=== PATIENT | male | born 1955 | race Caucasian/White ===

== ENCOUNTER → 2017-08-05 | Outpatient (CLI) | payer OTHER ==
[2017-08-05 14:43] LABS: THYROID PEROXIDASE ANTIBODY < 28.0 U/ML (<60.0)
== END ==
LOC: M LAB 10:50
PROVIDERS: ATTEND Nurse Practitioner Family
DX: E05.00 Thyrotoxicosis with diffuse goiter without thyrotoxic crisis or storm (principal)

== ENCOUNTER → 2017-08-12 | Outpatient (CLI) | payer OTHER ==
--- NOTE | 2017-08-14 08:18 | REP ---
Radionuclide thyroid scan and uptake: There are no comparison studies. The right and left lobes of the thyroid gland appear enlarged, the right lobe measuring 6.6 cm cranial caudad in the left lobe measuring 5.6 cm craniocaudad. There is a questionable focal zone of increased uptake in the lower pole of the right lobe on the ROMANIAN view only. This could be artifact. Otherwise, the uptake appears homogeneous. Thyroid uptake: The two our uptake is 4.78% (normal 6 - 12%). The 24 our uptake is 19.77% (normal is 25 - 35%). Impression: Question roll focal hot to zone inferiorly in the right lobe on one view only. The thyroid uptake is decreased from normal values. Consider thyroid ultrasound to evaluate for a thyroid nodule in the suspected focal hot zone in the right lobe lower pole. Signed by Joe Whitaker MD 08/14/2017 08:09 A
== END ==
LOC: M RAD 10:21
PROVIDERS: ATTEND Internal Medicine Endocrinology, Diabetes & Metabolism
DX: E05.00 Thyrotoxicosis with diffuse goiter without thyrotoxic crisis or storm (principal)
CPT/HCPCS: 78012; A9516

== ENCOUNTER → 2017-10-09 | Outpatient (REF) | payer OTHER ==
[2017-10-09 13:16] LABS: TOTAL 25(OH) VITAMIN D 55.8 NG/ML (30.0-100.0)
== END ==
LOC: M LAB REF 11:57
DX: E55.9 Vitamin D deficiency, unspecified (principal)

== ENCOUNTER → 2018-04-09 | Outpatient (REF) | payer OTHER ==
[2018-04-09 13:11] LABS: TOTAL T3 146.8 NG/DL (60.0-181.0)
[2018-04-09 13:16] LABS: THYROID STIMULATING HORMONE 0.006 uIU/ML (0.358-3.740); THYROXINE (T4) 13.6 UG/DL (4.5-12.0)
[2018-04-09 13:16] LABS: PSA SCREENING 0.67 NG/ML (< 4.0)
== END ==
LOC: M LAB REF 12:08
DX: R79.89 Other specified abnormal findings of blood chemistry (principal)

== ENCOUNTER → 2018-10-21 | Outpatient (REF) | payer OTHER ==
[2018-10-21 17:11] LABS: BASO # 0.1 10^3/uL (0.0-0.2); BASO % 0.8 % (0.0-1.0); EOS # 0.2 10^3/uL (0.0-0.50); HEMATOCRIT 44.9 % (42.0-52.0); HEMOGLOBIN 15.5 g/dl (13.5-17.5); LYMPH # 2.2 10^3/uL (1.5-4.5); MEAN CORPUSCULAR HEMOGLOBIN 31.9 pg (27.0-33.0); MEAN CORPUSCULAR HGB CONC 34.5 g/dl (32.0-36.5); MEAN CORPUSCULAR VOLUME 92.4 fl (80.0-96.0); MONO # 0.7 10^3/uL (0.0-0.8); MONO % 10.1 % (0.0-5.0); NEUTROPHILS # 3.5 10^3/uL (1.8-7.7); NEUTROPHILS % 52.8 % (36.0-66.0); PLATELET COUNT, AUTOMATED 197 10^3/uL (150-450); RED BLOOD COUNT 4.86 10^6/uL (4.30-6.10); WHITE BLOOD COUNT 6.6 10^3/uL (4.0-10.0)
[2018-10-21 17:20] LABS: ALBUMIN 4.2 GM/DL (3.2-5.2); ALT/SGPT 36 U/L (12-78); BILIRUBIN,TOTAL 0.5 MG/DL (0.2-1.0); BLOOD UREA NITROGEN 13 MG/DL (7-18); CALCIUM LEVEL 9.3 MG/DL (8.8-10.2); CARBON DIOXIDE LEVEL 32 MEQ/L (21-32); CHLORIDE LEVEL 104 MEQ/L (98-107); CHOLESTEROL LEVEL 109 MG/DL (<200); CHOLESTEROL RISK RATIO 2.224 (<5); CREATININE FOR GFR 1.04 MG/DL (0.70-1.30); FREE THYROXINE INDEX 5.3 % (1.4-3.8); GLOMERULAR FILTRATION RATE > 60.0 (>49); GLUCOSE, FASTING 107 MG/DL (70-100); HDL CHOLESTEROL 49 MG/DL (>40); LDL CHOLESTEROL 33 MG/DL (<100); NON-HDL-C 60 MG/DL; POTASSIUM SERUM 4.1 MEQ/L (3.5-5.1); SODIUM LEVEL 141 MEQ/L (136-145); T UPTAKE 35 % (33-40); THYROID STIMULATING HORMONE 0.007 uIU/ML (0.358-3.740); THYROXINE (T4) 15.1 UG/DL (4.5-12.0); TRIGLYCERIDES LEVEL 133 MG/DL (<150)
[2018-10-21 17:26] LABS: HEMOGLOBIN A1c 5.8 %
== END ==
LOC: M LAB REF 16:25
PROVIDERS: ATTEND Nurse Practitioner Adult Health
DX: Z13.9 Encounter for screening, unspecified (principal)

== ENCOUNTER → 2022-08-27 | Outpatient (REF) | payer OTHER ==
[2022-08-27 14:06] LABS: HEMOGLOBIN A1c 5.9 % (4.0-6.0)
[2022-08-27 14:10] LABS: ALBUMIN 3.8 G/DL (3.2-5.2); ALKALINE PHOSPHATASE 57 U/L (46-116); ALT/SGPT 52 U/L (7.0-40); AST/SGOT 29 U/L (<34); BILIRUBIN,TOTAL 0.5 MG/DL (0.3-1.2); BLOOD UREA NITROGEN 16 MG/DL (9-23); CALCIUM LEVEL 9.1 MG/DL (8.3-10.6); CARBON DIOXIDE LEVEL 25 MMOL/L (20-31); CHLORIDE LEVEL 105 MMOL/L (98-107); GLOMERULAR FILTRATION RATE > 60.0 (>49); GLUCOSE, FASTING 119 MG/DL (74-106); POTASSIUM SERUM 4.8 MMOL/L (3.5-5.1); SODIUM LEVEL 139 MMOL/L (136-145); TOTAL PROTEIN 6.5 G/DL (5.7-8.2)
== END ==
LOC: M LAB REF 12:33
PROVIDERS: ATTEND Nurse Practitioner Family
DX: E66.9 Obesity, unspecified (principal)

== ENCOUNTER → 2022-09-12 | Outpatient (REF) | payer OTHER | LOC: M LAB REF 12:52 | PROVIDERS: ATTEND Nurse Practitioner Family | DX: R39.9 Unspecified symptoms and signs involving the genitourinary system (principal) ==

== ENCOUNTER → 2022-09-26 | Outpatient (CLI) | payer OTHER ==
[2022-09-26 13:45] LABS: TOTAL T3 140.5 NG/DL (60.0-181.0)
[2022-09-26 13:46] LABS: THYROGLOBULIN ANTIBODY < 15.0 U/ML (<60.0); THYROID PEROXIDASE ANTIBODY < 28.0 U/ML (<60.0); THYROID STIMULATING HORMONE 0.013 uIU/ML (0.55-4.78)
[2022-09-26 13:47] LABS: FREE T4 1.22 NG/DL (0.89-1.76)
== END ==
LOC: M PLALAB 11:02
PROVIDERS: ATTEND Nurse Practitioner Family
DX: E05.00 Thyrotoxicosis with diffuse goiter without thyrotoxic crisis or storm (principal)

== ENCOUNTER → 2022-10-17 | Outpatient (REF) | payer OTHER ==
[2022-10-17 12:17] LABS: ALBUMIN 4.1 G/DL (3.2-5.2); ALKALINE PHOSPHATASE 57 U/L (46-116); ALT/SGPT 57 U/L (7.0-40); AST/SGOT 33 U/L (<34); BILIRUBIN,TOTAL 0.6 MG/DL (0.3-1.2); BLOOD UREA NITROGEN 13 MG/DL (9-23); CALCIUM LEVEL 9.4 MG/DL (8.3-10.6); CARBON DIOXIDE LEVEL 31 MMOL/L (20-31); CHLORIDE LEVEL 107 MMOL/L (98-107); CHOLESTEROL LEVEL 118 MG/DL (<200); CHOLESTEROL RISK RATIO 2.57 (<5); CREATININE FOR GFR 1.22 MG/DL (0.70-1.30); GLOMERULAR FILTRATION RATE > 60.0 (>49); GLUCOSE, FASTING 125 MG/DL (74-106); HDL CHOLESTEROL 45.9 MG/DL (>40); LDL CHOLESTEROL 58.3 MG/DL (<100); NON-HDL-C 72 MG/DL; POTASSIUM SERUM 4.7 MMOL/L (3.5-5.1); SODIUM LEVEL 141 MMOL/L (136-145); THYROID STIMULATING HORMONE 0.016 uIU/ML (0.55-4.78); TOTAL PROTEIN 6.4 G/DL (5.7-8.2); TRIGLYCERIDES LEVEL 69 MG/DL (<150)
== END ==
LOC: M LAB REF 11:16
PROVIDERS: ATTEND Nurse Practitioner Family
DX: Z13.228 Encounter for screening for other metabolic disorders (principal)

== ENCOUNTER → 2022-11-13 | Outpatient (CLI) | payer MEDICARE, OTHER | LOC: M RAD 13:00 | PROVIDERS: ATTEND Internal Medicine Endocrinology, Diabetes & Metabolism | DX: E05.00 Thyrotoxicosis with diffuse goiter without thyrotoxic crisis or storm (principal) | CPT/HCPCS: 78012; A9516 ==

== ENCOUNTER → 2023-10-22 | Outpatient (REF) | payer MEDICARE, OTHER ==
[2023-10-22 13:46] LABS: BASO # 0.1 10^3/uL (0.0-0.2); BASO % 0.9 % (0.0-1.0); EOS # 0.2 10^3/uL (0.0-0.5); EOS % 3.1 % (0.0-3.0); HEMOGLOBIN 15.6 g/dl (13.5-17.5); LYMPH # 1.6 10^3/uL (1.5-5.0); LYMPH % 23.9 % (24.0-44.0); MEAN CORPUSCULAR HEMOGLOBIN 32.9 pg (27.0-33.0); MEAN CORPUSCULAR HGB CONC 33.9 g/dl (32.0-36.5); MONO # 0.6 10^3/uL (0.0-0.8); MONO % 8.8 % (2.0-8.0); NEUTROPHILS # 4.3 10^3/uL (1.5-8.5); PLATELET COUNT, AUTOMATED 198 10^3/uL (150-450); RED BLOOD COUNT 4.74 10^6/uL (4.30-6.10); WHITE BLOOD COUNT 6.7 10^3/uL (4.0-10.0)
[2023-10-22 14:29] LABS: HEMOGLOBIN A1c 5.9 % (4.0-6.0)
[2023-10-22 14:33] LABS: ALBUMIN 4.5 G/DL (3.2-5.2); ALKALINE PHOSPHATASE 60 U/L (46-116); ALT/SGPT 58 U/L (7.0-40); AST/SGOT 24 U/L (<34); BILIRUBIN,TOTAL 0.8 MG/DL (0.3-1.2); BLOOD UREA NITROGEN 12 MG/DL (9-23); CALCIUM LEVEL 9.4 MG/DL (8.3-10.6); CARBON DIOXIDE LEVEL 30 MMOL/L (20-31); CHLORIDE LEVEL 104 MMOL/L (98-107); CHOLESTEROL LEVEL 125 MG/DL (<200); CHOLESTEROL RISK RATIO 3.11 (<5); CREATININE FOR GFR 0.99 MG/DL (0.70-1.30); GLOMERULAR FILTRATION RATE > 60.0 (>49); GLUCOSE, FASTING 124 MG/DL (74-106); HDL CHOLESTEROL 40.1 MG/DL (>40); LDL CHOLESTEROL 65.1 MG/DL (<100); NON-HDL-C 84.9 MG/DL; POTASSIUM SERUM 4.1 MMOL/L (3.5-5.1); SODIUM LEVEL 138 MMOL/L (136-145); THYROID STIMULATING HORMONE 0.066 uIU/ML (0.55-4.78); TOTAL 25(OH) VITAMIN D 45.7 NG/ML (20.0-100.0); TRIGLYCERIDES LEVEL 99 MG/DL (<150)
== END ==
LOC: M LAB REF 12:46
PROVIDERS: ATTEND Nurse Practitioner Family
DX: Z13.228 Encounter for screening for other metabolic disorders (principal); E07.9 Disorder of thyroid, unspecified; E78.00 Pure hypercholesterolemia, unspecified

== ENCOUNTER → 2023-11-08 | Outpatient (CLI) | payer MEDICARE, OTHER ==
[2023-11-08 16:38] LABS: FREE T4 1.1 NG/DL (0.89-1.76)
[2023-11-08 16:39] LABS: THYROID STIMULATING HORMONE 0.074 uIU/ML (0.55-4.78)
== END ==
LOC: M PLALAB 12:15
PROVIDERS: ATTEND Internal Medicine Endocrinology, Diabetes & Metabolism
DX: E05.00 Thyrotoxicosis with diffuse goiter without thyrotoxic crisis or storm (principal)

== ENCOUNTER → 2023-11-22 | Outpatient (CLI) | payer MEDICARE, OTHER ==
[2023-11-22 13:06] LABS: PSA SCREENING 0.4 NG/ML (< 4.00)
[2023-11-22 13:10] LABS: FOLLICLE STIMULATING HORMONE 10.1 mIU/ML (1.4-18.1); LUTEINIZING HORMONE 2.5 mIU/ML (1.5-9.3)
[2023-11-22 13:11] LABS: ESTRADIOL 19.6 PG/ML (<39.8)
== END ==
LOC: M PLALAB 09:13
PROVIDERS: ATTEND Physician Assistant
DX: R68.82 Decreased libido (principal); Z12.5 Encounter for screening for malignant neoplasm of prostate
CPT/HCPCS: 36415; 82670; 83001; 83002; 84403; G0103

== ENCOUNTER → 2023-12-23 | Outpatient (CLI) | payer MEDICARE, OTHER | LOC: M PLALAB 12-20 15:27 | PROVIDERS: ATTEND Physician Assistant | DX: E29.1 Testicular hypofunction (principal) ==

== ENCOUNTER → 2023-12-27 | Outpatient (CLI) | payer MEDICARE, OTHER | LOC: M RAD 12:26 | PROVIDERS: ATTEND Nurse Practitioner Family | DX: K43.9 Ventral hernia without obstruction or gangrene (principal) ==

== ENCOUNTER → 2024-03-13 | Outpatient (CLI) | payer MEDICARE ==
[2024-03-13 13:37] LABS: HEMATOCRIT 46.8 % (42.0-52.0); HEMOGLOBIN 15.7 g/dl (13.5-17.5); MEAN CORPUSCULAR HEMOGLOBIN 32.6 pg (27.0-33.0); MEAN CORPUSCULAR HGB CONC 33.5 g/dl (32.0-36.5); MEAN CORPUSCULAR VOLUME 97.1 fl (80.0-96.0); PLATELET COUNT, AUTOMATED 182 10^3/uL (150-450); RED BLOOD COUNT 4.82 10^6/uL (4.30-6.10); WHITE BLOOD COUNT 7.8 10^3/uL (4.0-10.0)
== END ==
LOC: M PLALAB 08:54
PROVIDERS: ATTEND Physician Assistant
DX: E29.1 Testicular hypofunction (principal)

== ENCOUNTER → 2024-04-06 | Outpatient (CLI) | payer MEDICARE | LOC: M RAD 09:17 | PROVIDERS: ATTEND Nurse Practitioner Family | DX: Z87.891 Personal history of nicotine dependence (principal) ==

== ENCOUNTER → 2024-06-09 | Outpatient (CLI) | payer OTHER | LOC: M PLALAB 08:05 | PROVIDERS: ATTEND Physician Assistant | DX: E29.1 Testicular hypofunction (principal) ==

== ENCOUNTER → 2024-06-24 | Outpatient (CLI) | payer OTHER | LOC: M RAD 10:39 | PROVIDERS: ATTEND Nurse Practitioner Family | DX: E04.1 Nontoxic single thyroid nodule (principal) ==

== ENCOUNTER 2024-08-22 19:14 | Inpatient (IN) | payer OTHER ==
[~2024-08-22] VITALS: Ht 182.9 cm; Wt 75.7 kg
[2024-08-22] MEDS ORDERED: ISOVUE-370 76% 100ML VIAL As Ordered ONE (19:18)
[2024-08-22 19:41] LABS: BASO % 0.4 % (0.0-1.0); EOS # 0.1 10^3/uL (0.0-0.5); EOS % 1.4 % (0.0-3.0); HEMATOCRIT 44.5 % (42.0-52.0); HEMOGLOBIN 15.1 g/dl (13.5-17.5); LYMPH # 1.2 10^3/uL (1.5-5.0); LYMPH % 12.8 % (24.0-44.0); MEAN CORPUSCULAR HEMOGLOBIN 33.1 pg (27.0-33.0); MEAN CORPUSCULAR HGB CONC 33.9 g/dl (32.0-36.5); MEAN CORPUSCULAR VOLUME 97.6 fl (80.0-96.0); MONO # 0.7 10^3/uL (0.0-0.8); MONO % 7.8 % (2.0-8.0); NEUTROPHILS # 7.1 10^3/uL (1.5-8.5); NEUTROPHILS % 77.3 % (36.0-66.0); PLATELET COUNT, AUTOMATED 184 10^3/uL (150-450); RED BLOOD COUNT 4.56 10^6/uL (4.30-6.10); WHITE BLOOD COUNT 9.2 10^3/uL (4.0-10.0)
[2024-08-22 20:13] LABS: INR 1.02; PROTHROMBIN TIME 13.7 SECONDS (12.5-14.5)
[2024-08-22 20:14] LABS: CALCIUM LEVEL 9.6 MG/DL (8.3-10.6); CREATININE FOR GFR 1.31 MG/DL (0.70-1.30); GLOMERULAR FILTRATION RATE 58.3 (>49); POTASSIUM SERUM 4.5 MMOL/L (3.5-5.1)
[2024-08-22] MEDS ORDERED: NS (Normal Saline) 0.9% 1,000 ML IV ONE (20:25)
[2024-08-22] MEDS: NS 500 ML IV SCH (20:26)
[2024-08-22] MEDS: ASPIRIN 300 MG SUPP PR ONE (20:42)
[2024-08-22] MEDS: NS (Normal Saline) 0.9% 1,000 ML IV SCH (23:29)
[2024-08-22] MEDS ORDERED: D 101000 PO (23:33)
[2024-08-22] MEDS ORDERED: CENT1TAB2 PO (23:33)
[2024-08-22] MEDS ORDERED: TEST75GE TOP (23:33)
[2024-08-22] MEDS ORDERED: HOME MED LIST COMPLETE! XX SCH (23:35)
[2024-08-23] VITALS (7 sets, daily range): BP systolic 165–190; BP diastolic 49–108; TEMP 97.7–100.6; O2SAT 95–99
[2024-08-23 00:59] LABS: AMPHETAMINES LEVEL URINE NEGATIVE (NEGATIVE); BARBITURATES URINE NEGATIVE (NEGATIVE); BENZODIAZEPINES URINE NEGATIVE (NEGATIVE); COCAINE METABOLITE URINE NEGATIVE (NEGATIVE); METHADONE URINE NEGATIVE (NEGATIVE); OPIATES URINE NEGATIVE (NEGATIVE); PHENCYCLIDINE URINE NEGATIVE (NEGATIVE)
[2024-08-23 01:01] LABS: CANNABINOIDS URINE POSITIVE (NEGATIVE)
[2024-08-23] MEDS: CLOPIDOGREL 300 MG TAB (PLAVIX) GT STA (01:55)
[2024-08-23] MEDS: LABETALOL 100MG/20ML VIAL IV SCH (01:57)
[2024-08-23] MEDS: ATORVASTATIN 20 MG TAB GT SCH (01:57)
[2024-08-23] MEDS: HEPARIN SOD (PORCINE) 5000UNITS/ML 1ML VIAL/SYRINGE SQ SCH (05:29)
[2024-08-23 06:05] LABS: HEMATOCRIT 46.1 % (42.0-52.0); HEMOGLOBIN 15.6 g/dl (13.5-17.5); MEAN CORPUSCULAR HEMOGLOBIN 32.8 pg (27.0-33.0); MEAN CORPUSCULAR HGB CONC 33.8 g/dl (32.0-36.5); MEAN CORPUSCULAR VOLUME 96.8 fl (80.0-96.0); PLATELET COUNT, AUTOMATED 182 10^3/uL (150-450); RED BLOOD COUNT 4.76 10^6/uL (4.30-6.10); WHITE BLOOD COUNT 9.5 10^3/uL (4.0-10.0)
[2024-08-23 06:34] LABS: ALBUMIN 3.9 G/DL (3.2-5.2); ALKALINE PHOSPHATASE 60 U/L (40-129); ALT/SGPT 58 U/L (7.0-40); AST/SGOT 25 U/L (<34); BILIRUBIN,TOTAL 0.8 MG/DL (0.3-1.2); BLOOD UREA NITROGEN 11 MG/DL (9-23); CALCIUM LEVEL 9.2 MG/DL (8.3-10.6); CARBON DIOXIDE LEVEL 27 MMOL/L (20-31); CHLORIDE LEVEL 107 MMOL/L (98-107); CREATININE FOR GFR 1.06 MG/DL (0.70-1.30); GLOMERULAR FILTRATION RATE > 60.0 (>49); GLUCOSE, FASTING 126 MG/DL (74-106); SODIUM LEVEL 143 MMOL/L (136-145); TOTAL PROTEIN 6.7 G/DL (5.7-8.2)
[2024-08-23] MEDS: PANTOPRAZOLE 40MG VIAL IV SCH (08:30)
[2024-08-23] MEDS: ASPIRIN 81MG CHEW TABLET GT SCH (08:30)
[2024-08-23] MEDS: CLOPIDOGREL 75 MG TAB GT SCH (08:30)
[2024-08-23] MEDS: CHLORASEPTIC SPRAY MT PRN (12:43)
[2024-08-23] MEDS: LORazepam 2 MG/ML 1ML VIAL IV PRN (17:02)
[2024-08-23] MEDS ORDERED: MAGIC MOUTHWASH 5ML ORAL SYRINGE SS PRN (21:30)
[2024-08-24] MEDS ORDERED: ACETAMINOPHEN 325 MG TAB PO PRN (01:25)
[2024-08-24 04:51] VITALS: BP 170/98; TEMP 100.2; O2SAT 97
[2024-08-24 07:57] LABS: HEMATOCRIT 44.3 % (42.0-52.0); HEMOGLOBIN 15.3 g/dl (13.5-17.5); MEAN CORPUSCULAR HEMOGLOBIN 32.9 pg (27.0-33.0); MEAN CORPUSCULAR HGB CONC 34.5 g/dl (32.0-36.5); MEAN CORPUSCULAR VOLUME 95.3 fl (80.0-96.0); PLATELET COUNT, AUTOMATED 175 10^3/uL (150-450); RED BLOOD COUNT 4.65 10^6/uL (4.30-6.10); WHITE BLOOD COUNT 9.4 10^3/uL (4.0-10.0)
[2024-08-24 08:06] VITALS: BP 144/77; TEMP 99; O2SAT 94
[2024-08-24 08:22] LABS: BLOOD UREA NITROGEN 10 MG/DL (9-23); CALCIUM LEVEL 9.2 MG/DL (8.3-10.6); CARBON DIOXIDE LEVEL 25 MMOL/L (20-31); CHLORIDE LEVEL 108 MMOL/L (98-107); GLOMERULAR FILTRATION RATE > 60.0 (>49); GLUCOSE, FASTING 118 MG/DL (74-106); POTASSIUM SERUM 4.2 MMOL/L (3.5-5.1); SODIUM LEVEL 141 MMOL/L (136-145)
[2024-08-24] MEDS ORDERED: HEPARIN SOD (PORCINE) 5000UNITS/ML 1ML VIAL/SYRINGE SQ SCH ×2 (09:00→21:00)
[2024-08-24 12:00] VITALS: BP 162/92
[2024-08-24 12:14] VITALS: BP 162/92; TEMP 98.9; O2SAT 96
[2024-08-24] MEDS ORDERED: CLOP75TA2 PO (13:39)
[2024-08-24] MEDS ORDERED: ASPI81CH8 PO (13:39)
[2024-08-24] MEDS ORDERED: ATOR1TAB21 PO (13:39)
== END 2024-08-24 16:07 | disposition home or self-care (01) | DRG 69 ==
LOC: EDBD 19:14 → M ED 19:14 → M ED INP 22:29 → M PCU 08-23 01:11
PROVIDERS: ADMIT Student in an Organized Health Care Education/Training Program; ATTEND Student in an Organized Health Care Education/Training Program
PROC: B246ZZZ Ultrasonography of Right and Left Heart (ICD-10-PCS; principal; 2024-08-24)
DX: G45.9 Transient cerebral ischemic attack, unspecified (principal); N17.9 Acute kidney failure, unspecified; R47.01 Aphasia; I10 Essential (primary) hypertension; E29.1 Testicular hypofunction; Z87.891 Personal history of nicotine dependence; Z79.899 Other long term (current) drug therapy

== ENCOUNTER → 2024-09-16 | Outpatient (CLI) | payer MEDICARE, OTHER ==
[~2024-09-16] MED LIST: ASPI81CH8 PO; ATOR1TAB21 PO; CENT1TAB2 PO; CLOP75TA2 PO; D 101000 PO; TEST75GE TOP
[2024-09-16 14:14] LABS: HEMATOCRIT 34.6 % (42.0-52.0); HEMOGLOBIN 11.6 g/dl (13.5-17.5); MEAN CORPUSCULAR HEMOGLOBIN 32.6 pg (27.0-33.0); MEAN CORPUSCULAR HGB CONC 33.5 g/dl (32.0-36.5); MEAN CORPUSCULAR VOLUME 97.2 fl (80.0-96.0); PLATELET COUNT, AUTOMATED 316 10^3/uL (150-450); RED BLOOD COUNT 3.56 10^6/uL (4.30-6.10); WHITE BLOOD COUNT 12.6 10^3/uL (4.0-10.0)
[2024-09-20 17:47] LABS: TESTOSTERONE FREE (DIRECT) 8.1 pg/mL (35.0-155.0)
== END ==
LOC: M PLALAB 11:13
PROVIDERS: ATTEND Physician Assistant
DX: E29.1 Testicular hypofunction (principal)

== ENCOUNTER → 2024-10-12 | Outpatient (CLI) | payer MEDICARE | LOC: M RAD 13:50 | PROVIDERS: ATTEND Nurse Practitioner Family | DX: E04.1 Nontoxic single thyroid nodule (principal) ==

== ENCOUNTER → 2024-10-29 | Outpatient (REF) | payer MEDICARE ==
[2024-10-30 13:20] LABS: BASO # 0.1 10^3/uL (0.0-0.2); BASO % 0.8 % (0.0-1.0); EOS # 0.2 10^3/uL (0.0-0.5); HEMATOCRIT 43.4 % (42.0-52.0); HEMOGLOBIN 14.6 g/dl (13.5-17.5); LYMPH # 1.6 10^3/uL (1.5-5.0); LYMPH % 24.1 % (24.0-44.0); MEAN CORPUSCULAR HGB CONC 33.6 g/dl (32.0-36.5); MEAN CORPUSCULAR VOLUME 98.2 fl (80.0-96.0); MONO # 0.7 10^3/uL (0.0-0.8); MONO % 10.3 % (2.0-8.0); NEUTROPHILS % 61.6 % (36.0-66.0); PLATELET COUNT, AUTOMATED 168 10^3/uL (150-450); RED BLOOD COUNT 4.42 10^6/uL (4.30-6.10); WHITE BLOOD COUNT 6.4 10^3/uL (4.0-10.0)
[2024-10-30 13:35] LABS: HEMOGLOBIN A1c 5.6 % (4.0-6.0)
[2024-10-30 13:48] LABS: CHOLESTEROL RISK RATIO 2.95 (<5); HDL CHOLESTEROL 30.8 MG/DL (>40); LDL CHOLESTEROL 39.6 MG/DL (<100); MAGNESIUM LEVEL 1.6 MG/DL (1.8-2.4); NON-HDL-C 60.2 MG/DL
[2024-10-30 13:53] LABS: THYROID STIMULATING HORMONE 0.128 uIU/ML (0.55-4.78)
== END ==
LOC: M LAB REF 12:11
PROVIDERS: ATTEND Nurse Practitioner Family
DX: E66.3 Overweight (principal); Z79.899 Other long term (current) drug therapy

== ENCOUNTER 2024-12-04 18:39 | Emergency (ER) | payer MEDICARE ==
[2024-12-04] MEDS: MIDAZOLAM INJ 2MG/2ML VIAL IV STA ×3 (19:26→23:05)
[2024-12-04 19:48] LABS: BASO # 0.1 10^3/uL (0.0-0.2); BASO % 0.3 % (0.0-1.0); EOS % 0.1 % (0.0-3.0); HEMATOCRIT 49.9 % (42.0-52.0); LYMPH # 1.1 10^3/uL (1.5-5.0); LYMPH % 4.7 % (24.0-44.0); MEAN CORPUSCULAR HEMOGLOBIN 32.2 pg (27.0-33.0); MEAN CORPUSCULAR HGB CONC 34.1 g/dl (32.0-36.5); MEAN CORPUSCULAR VOLUME 94.5 fl (80.0-96.0); MONO # 0.7 10^3/uL (0.0-0.8); MONO % 2.9 % (2.0-8.0); NEUTROPHILS # 21.4 10^3/uL (1.5-8.5); NEUTROPHILS % 91.1 % (36.0-66.0); PLATELET COUNT, AUTOMATED 218 10^3/uL (150-450); RED BLOOD COUNT 5.28 10^6/uL (4.30-6.10); WHITE BLOOD COUNT 23.4 10^3/uL (4.0-10.0)
[2024-12-04 20:08] LABS: CK-MB VALUE MASS 1.8 NG/ML (<3.6)
[2024-12-04 20:09] LABS: ETHYL ALCOHOL (ETHANOL) 0.008 % (0.000-0.010)
[2024-12-04 20:11] LABS: ALBUMIN 4.1 G/DL (3.2-5.2); ALKALINE PHOSPHATASE 59 U/L (40-129); ALT/SGPT 34 U/L (7.0-40); AST/SGOT 22 U/L (<34); BILIRUBIN,DIRECT 0.2 MG/DL (<0.4); BILIRUBIN,TOTAL 0.5 MG/DL (0.3-1.2); BLOOD UREA NITROGEN 13 MG/DL (9-23); CARBON DIOXIDE LEVEL 19 MMOL/L (20-31); CHLORIDE LEVEL 103 MMOL/L (98-107); CPK CREATINE PHOSPHOKINASE 118 U/L (46-171); GLOMERULAR FILTRATION RATE 58.6 (>49); GLUCOSE, FASTING 248 MG/DL (74-106); MB/CK RELATIVE INDEX 1.52 (< OR =4); POTASSIUM SERUM 3.9 MMOL/L (3.5-5.1); SALICYLATE LEVEL < 3.0 MG/DL (<30); SODIUM LEVEL 139 MMOL/L (136-145); TOTAL PROTEIN 7.3 G/DL (5.7-8.2)
[2024-12-04 20:13] LABS: THYROID STIMULATING HORMONE 0.328 uIU/ML (0.55-4.78)
[2024-12-04] MEDS ORDERED: CLOP75TA2 PO (20:36)
[2024-12-04] MEDS ORDERED: ASPI81CH33 PO (20:36)
[2024-12-04] MEDS ORDERED: METO1TAB87 PO (20:36)
[2024-12-04] MEDS ORDERED: ATOR1TAB19 PO (20:36)
[2024-12-04] MEDS: NS 0.9% IV ONE (20:39)
[2024-12-04] MEDS: [UNRECOGNIZED DRUG - OTHER] IV ONE (20:39)
[2024-12-04] MEDS ORDERED: HOME MED LIST COMPLETE! XX SCH (20:40)
[2024-12-04] MEDS: cefTRIAXone SOD 2 GM in DEXTROSE 5% (D5W) ADV/MINI-BAG 50 ML IV ONE (21:13)
[2024-12-04 21:57] LABS: KETONE, URINE AUTO RFX TRACE mg/dL (NEGATIVE); LEUKOCYTE ESTERASE UR AUTO RFX NEGATIVE (NEGATIVE); MUCUS, URINE RFX SMALL (NEGATIVE); NITRITE, URINE AUTO RFX NEGATIVE (NEGATIVE); RBC, URINE AUTO RFX 1 /HPF (0-3); SQUAM EPITHELIAL CELL UR AURFX 0 /HPF (0-6); WBC, URINE AUTO RFX 1 /HPF (0-3)
[2024-12-04 22:13] LABS: AMPHETAMINES LEVEL URINE NEGATIVE (NEGATIVE); BARBITURATES URINE NEGATIVE (NEGATIVE); COCAINE METABOLITE URINE NEGATIVE (NEGATIVE); METHADONE URINE NEGATIVE (NEGATIVE); OPIATES URINE NEGATIVE (NEGATIVE); PHENCYCLIDINE URINE NEGATIVE (NEGATIVE)
[2024-12-04 22:15] LABS: BENZODIAZEPINES URINE POSITIVE (NEGATIVE); CANNABINOIDS URINE POSITIVE (NEGATIVE)
[2024-12-04 22:17] LABS: MB/CK RELATIVE INDEX 2.09 (< OR =4)
[2024-12-04] MEDS: BOOSTRIX VACCINE (TETANUS/DIPHTH/ACEL. PERTUSSIS) 0.5ML SYR IM ONE (22:31)
[2024-12-04] MEDS: DERMABOND TOPICAL SKIN ADHESIVE TOP ONE (22:34)
[2024-12-04] MEDS ORDERED: ISOVUE-370 76% 100ML VIAL As Ordered ONE (22:38)
[2024-12-04 23:18] LABS: CK-MB VALUE MASS 2.9 NG/ML (<3.6)
[2024-12-04 23:35] LABS: CALCIUM LEVEL 7.9 MG/DL (8.3-10.6); CREATININE FOR GFR 1.39 MG/DL (0.70-1.30); GLOMERULAR FILTRATION RATE 54.3 (>49); MB/CK RELATIVE INDEX 1.87 (< OR =4); POTASSIUM SERUM 4.1 MMOL/L (3.5-5.1)
[2024-12-05] MEDS ORDERED: MIDAZOLAM 5MG/ML 1ML VIAL IV PRN (00:15)
[2024-12-05] MEDS: LORazepam 2 MG/ML 1ML VIAL IV STA (00:39)
[2024-12-05] MEDS: levETIRAcetam INJection 1,500 MG in IV 1 EA IV ONE (00:40)
[2024-12-05] MEDS: NS (Normal Saline) 0.9% 1,000 ML IV SCH (00:54)
[2024-12-05] MEDS: THIAMINE 200MG 2ML VIAL IV ONE (00:54)
[2024-12-05 01:40] VITALS: BP 130/59; TEMP 99; O2SAT 91
== END 2024-12-05 01:40 | disposition short-term general hospital (02) ==
LOC: M ED 18:39
DX: S00.83XA Contusion of other part of head, initial encounter (principal); R55 Syncope and collapse; R79.89 Other specified abnormal findings of blood chemistry; R74.02 Elevation of levels of lactic acid dehydrogenase [LDH]; Y92.9 Unspecified place or not applicable; Y93.9 Activity, unspecified; Y99.9 Unspecified external cause status; E11.9 Type 2 diabetes mellitus without complications; I10 Essential (primary) hypertension; E78.5 Hyperlipidemia, unspecified; Z86.73 Personal history of transient ischemic attack (TIA), and cerebral infarction without residual deficits; Z79.1 Long term (current) use of non-steroidal anti-inflammatories (NSAID); Z79.899 Other long term (current) drug therapy; Z79.890 Hormone replacement therapy; Z23 Encounter for immunization
CPT/HCPCS: 70450; 70486; 71045; 71275; 72125; 74174; 80048; 80076; 80143; 80307; 81001; 82077; 82140; 82550; 82553; 83605; 84443; 84484; 85025; 90471; 90715; 93005; 93041; 94760; 96365; 96366; 96375; 96376; 99291; J0696; J1953; J2060; J2250; J3411; Q9967

== ENCOUNTER → 2024-12-23 | Outpatient (REF) | payer MEDICARE ==
[~2024-12-23] MED LIST changes: +ASPI81CH33 PO; +ATOR1TAB19 PO; +METO1TAB87 PO
[2024-12-23 19:27] LABS: HEMOGLOBIN A1c 6.4 % (4.0-6.0)
[2024-12-23 19:29] LABS: THYROID STIMULATING HORMONE 0.197 uIU/ML (0.55-4.78)
[2024-12-23 19:31] LABS: FREE T4 1.36 NG/DL (0.89-1.76)
[2024-12-23 19:36] LABS: BILIRUBIN,TOTAL 0.4 MG/DL (0.3-1.2); CALCIUM LEVEL 9.7 MG/DL (8.3-10.6); CREATININE FOR GFR 1.07 MG/DL (0.70-1.30); GLOMERULAR FILTRATION RATE 76.1 (>49); MAGNESIUM LEVEL 1.8 MG/DL (1.8-2.4); POTASSIUM SERUM 4.7 MMOL/L (3.5-5.1); TOTAL PROTEIN 7.5 G/DL (5.7-8.2)
== END ==
LOC: M LAB REF 17:20
PROVIDERS: ATTEND Nurse Practitioner Family
DX: I10 Essential (primary) hypertension (principal); E66.3 Overweight; R79.89 Other specified abnormal findings of blood chemistry

== ENCOUNTER 2025-01-12 12:07 | Inpatient (IN) | payer MEDICARE ==
[~2025-01-12] VITALS: Ht 182.9 cm; Wt 89.0 kg
[2025-01-12] MEDS: NS (Normal Saline) 0.9% 1,000 ML IV ONE (12:36)
[2025-01-12 13:02] LABS: BASO # 0.1 10^3/uL (0.0-0.2); BASO % 0.3 % (0.0-1.0); EOS % 0.2 % (0.0-3.0); HEMOGLOBIN 14.2 g/dl (13.5-17.5); LYMPH % 5.3 % (24.0-44.0); MEAN CORPUSCULAR HEMOGLOBIN 31.4 pg (27.0-33.0); MEAN CORPUSCULAR HGB CONC 33.8 g/dl (32.0-36.5); MEAN CORPUSCULAR VOLUME 92.9 fl (80.0-96.0); MONO # 0.8 10^3/uL (0.0-0.8); MONO % 4.3 % (2.0-8.0); NEUTROPHILS # 17.4 10^3/uL (1.5-8.5); NEUTROPHILS % 88.9 % (36.0-66.0); PLATELET COUNT, AUTOMATED 249 10^3/uL (150-450); RED BLOOD COUNT 4.52 10^6/uL (4.30-6.10); WHITE BLOOD COUNT 19.6 10^3/uL (4.0-10.0)
[2025-01-12] MEDS: CEFEPIME HCL 2 GM in DEXTROSE 5% (D5W) ADV/MINI-BAG 50 ML IV ONE (13:09)
[2025-01-12 13:18] LABS: INR 1.05; PARTIAL THROMBOPLASTIN TIME 28.5 SECONDS (24.8-34.2)
[2025-01-12 13:31] LABS: CK-MB VALUE MASS < 1.0 NG/ML (<3.6)
[2025-01-12 13:35] LABS: THYROID STIMULATING HORMONE 0.082 uIU/ML (0.55-4.78)
[2025-01-12 13:36] LABS: FREE T4 1.58 NG/DL (0.89-1.76)
[2025-01-12 13:38] LABS: ALBUMIN 2.7 G/DL (3.2-5.2); ALKALINE PHOSPHATASE 78 U/L (40-129); ALT/SGPT 15 U/L (7.0-40); AST/SGOT 11 U/L (<34); BILIRUBIN,DIRECT 0.2 MG/DL (<0.4); BILIRUBIN,TOTAL 0.5 MG/DL (0.3-1.2); BLOOD UREA NITROGEN 98 MG/DL (9-23); CALCIUM LEVEL 8.4 MG/DL (8.3-10.6); CARBON DIOXIDE LEVEL 16 MMOL/L (20-31); CHLORIDE LEVEL 106 MMOL/L (98-107); CPK CREATINE PHOSPHOKINASE 24 U/L (46-171); CREATININE FOR GFR 2.57 MG/DL (0.70-1.30); GLOMERULAR FILTRATION RATE 26.6 (>49); GLUCOSE, FASTING 171 MG/DL (74-106); MB/CK RELATIVE INDEX 4.16 (< OR =4); SODIUM LEVEL 134 MMOL/L (136-145); TOTAL PROTEIN 5.9 G/DL (5.7-8.2)
[2025-01-12] MEDS: CALCIUM GLUCONATE 1,000 MG in DEXTROSE 5% (D5W) MINI-BAG PLU 100 ML IV ONE (14:16)
[2025-01-12] MEDS: DEXTROSE 50% 50ML SYRINGE IV STA (14:20)
[2025-01-12] MEDS: HumuLIN R (REGULAR) INSULIN (NovoLIN R) **100U/ML** PER UNIT IV ONE (14:24)
[2025-01-12] MEDS: [UNRECOGNIZED DRUG - OTHER] IV ONE (14:25)
[2025-01-12] MEDS: NS 0.9% IV ONE (14:25)
[2025-01-12 14:31] LABS: CPK CREATINE PHOSPHOKINASE < 15 U/L (46-171)
[2025-01-12 14:32] LABS: CK-MB VALUE MASS < 1.0 NG/ML (<3.6)
[2025-01-12 14:35] LABS: KETONE, URINE AUTO RFX NEGATIVE (NEGATIVE); LEUKOCYTE ESTERASE UR AUTO RFX NEGATIVE (NEGATIVE); MUCUS, URINE RFX SMALL (NEGATIVE); NITRITE, URINE AUTO RFX NEGATIVE (NEGATIVE); RBC, URINE AUTO RFX 1 /HPF (0-3); SQUAM EPITHELIAL CELL UR AURFX 0 /HPF (0-6); WBC, URINE AUTO RFX 1 /HPF (0-3)
[2025-01-12 14:45] LABS: AMPHETAMINES LEVEL URINE NEGATIVE (NEGATIVE); BARBITURATES URINE NEGATIVE (NEGATIVE); BENZODIAZEPINES URINE NEGATIVE (NEGATIVE); COCAINE METABOLITE URINE NEGATIVE (NEGATIVE); METHADONE URINE NEGATIVE (NEGATIVE); OPIATES URINE NEGATIVE (NEGATIVE); PHENCYCLIDINE URINE NEGATIVE (NEGATIVE)
[2025-01-12 14:50] LABS: CANNABINOIDS URINE POSITIVE (NEGATIVE)
[2025-01-12] MEDS ORDERED: ALBU2.5V10 NEB (17:24)
[2025-01-12] MEDS ORDERED: SYMB16INH INH (17:24)
[2025-01-12] MEDS ORDERED: CARV6.25 PO (17:24)
[2025-01-12] MEDS ORDERED: METF-838 PO (17:24)
[2025-01-12] MEDS ORDERED: LISI20TA33 PO (17:24)
[2025-01-12] MEDS ORDERED: AMLO1TAB25 PO (17:24)
[2025-01-12] MEDS ORDERED: ATOR40TA75 PO (17:24)
[2025-01-12] MEDS ORDERED: ALBU8.5H INH (17:24)
[2025-01-12] MEDS ORDERED: LACO100T PO (17:24)
[2025-01-12] MEDS ORDERED: CHOL50002 PO (17:24)
[2025-01-12] MEDS ORDERED: SPIR1CAP INH (17:24)
[2025-01-12] MEDS ORDERED: HOME MED LIST COMPLETE! XX SCH (17:25)
[2025-01-12] MEDS: INSULIN LISPRO (NovoLOG) PER UNIT SC SCH ×2 (17:30→21:00)
[2025-01-12] MEDS ORDERED: MELA3TAB70 PO (17:32)
[2025-01-12] MEDS ORDERED: ACET-839 PO (17:33)
[2025-01-12 17:47] LABS: C REACTIVE PROTEIN QUANTITATIV 3.65 MG/DL (<1.0)
[2025-01-12] MEDS ORDERED: GLUCOSE 4 GM CHEW PO PRN (18:10)
[2025-01-12] MEDS ORDERED: DEXTROSE 50% 50ML SYRINGE IV PRN (18:10)
[2025-01-12] MEDS ORDERED: GLUCAGON INJ 1MG VIAL SC PRN (18:10)
[2025-01-12 18:46] LABS: BLOOD UREA NITROGEN 93 MG/DL (9-23); CALCIUM LEVEL 8.3 MG/DL (8.3-10.6); CARBON DIOXIDE LEVEL 17 MMOL/L (20-31); CHLORIDE LEVEL 107 MMOL/L (98-107); CREATININE FOR GFR 2.36 MG/DL (0.70-1.30); GLOMERULAR FILTRATION RATE 29.4 (>49); GLUCOSE, FASTING 144 MG/DL (74-106); POTASSIUM SERUM 5.7 MMOL/L (3.5-5.1); SODIUM LEVEL 135 MMOL/L (136-145)
[2025-01-12] MEDS: NS (Normal Saline) 0.9% 1,000 ML IV SCH (19:17)
[2025-01-12 20:31] LABS: CALCIUM LEVEL 8.2 MG/DL (8.3-10.6); CREATININE FOR GFR 1.87 MG/DL (0.70-1.30); GLOMERULAR FILTRATION RATE 38.9 (>49); POTASSIUM SERUM 5.3 MMOL/L (3.5-5.1)
[2025-01-12 21:54] VITALS: BP 102/64; TEMP 97.8; O2SAT 99
[2025-01-12 23:56] VITALS: BP 95/50; TEMP 98.2; O2SAT 98
[2025-01-13] VITALS (9 sets, daily range): BP systolic 93–112; BP diastolic 53–70; TEMP 97.2–98.2; O2SAT 90–98
[2025-01-13 01:17] LABS: CALCIUM LEVEL 7.8 MG/DL (8.3-10.6); CREATININE FOR GFR 1.68 MG/DL (0.70-1.30); GLOMERULAR FILTRATION RATE 44.3 (>49); POTASSIUM SERUM 4.9 MMOL/L (3.5-5.1)
[2025-01-13 05:33] LABS: BASO # 0.1 10^3/uL (0.0-0.2); BASO % 0.4 % (0.0-1.0); EOS # 0.1 10^3/uL (0.0-0.5); EOS % 0.7 % (0.0-3.0); HEMATOCRIT 38.4 % (42.0-52.0); LYMPH # 1.1 10^3/uL (1.5-5.0); LYMPH % 8.1 % (24.0-44.0); MEAN CORPUSCULAR HEMOGLOBIN 30.8 pg (27.0-33.0); MEAN CORPUSCULAR HGB CONC 33.9 g/dl (32.0-36.5); MONO # 1.3 10^3/uL (0.0-0.8); MONO % 9.4 % (2.0-8.0); NEUTROPHILS # 11.4 10^3/uL (1.5-8.5); NEUTROPHILS % 80.6 % (36.0-66.0); PLATELET COUNT, AUTOMATED 252 10^3/uL (150-450); RED BLOOD COUNT 4.22 10^6/uL (4.30-6.10); WHITE BLOOD COUNT 14.1 10^3/uL (4.0-10.0)
[2025-01-13 06:10] LABS: CALCIUM LEVEL 7.9 MG/DL (8.3-10.6); CREATININE FOR GFR 1.46 MG/DL (0.70-1.30); GLOMERULAR FILTRATION RATE 52.4 (>49); POTASSIUM SERUM 5.1 MMOL/L (3.5-5.1)
[2025-01-13] MEDS: HEPARIN SOD (PORCINE) 5000UNITS/ML 1ML VIAL/SYRINGE SC SCH (06:21)
[2025-01-13] MEDS ORDERED: ALBUTEROL SULFATE 2.5MG/0.5ML INH CONCENTRATE NEB SOLN NEB PRN (06:45)
[2025-01-13] MEDS: ACETAMINOPHEN 500 MG TAB PO PRN (07:27)
[2025-01-13 08:01] LABS: VENOUS BASE EXCESS -9.6 (-2.0-2.0); VENOUS HCO3 18.5 MMOL/L (23.0-27.0); VENOUS O2 SATURATION 75.7 % (60.0-80.0); VENOUS PARTIAL PRESSURE O2 46.3 mmHg (30.0-50.0); VENOUS PH 7.196 UNITS (7.330-7.430); VENOUS STANDARD HCO3 16.5 MMOL/L; VENOUS TOTAL CO2 20.1 MMOL/L (24.0-28.0)
[2025-01-13] MEDS: LACOSAMIDE 50 MG TAB (VIMPAT) PO SCH (08:19)
[2025-01-13] MEDS: CARVedilol 6.25 MG TAB PO SCH (08:20)
[2025-01-13] MEDS: TIOTROPIUM BROM 2.5MCG/ACTUATION 4GM INH INH SCH (08:46)
[2025-01-13] MEDS: SYMBICORT 160/4.5MCG INHALER 6GM INH SCH (08:46)
[2025-01-13] MEDS: FIDAXOMICIN 200 MG TAB (DIFICID) PO SCH (10:14)
[2025-01-13] MEDS: SODIUM BICARBONATE 150 MEQ in D5W 1,000 ML IV SCH (10:15)
[2025-01-13] MEDS: LORazepam 1 MG TAB PO ONE (11:30)
[2025-01-13] MEDS: ASPIRIN 81MG CHEW TABLET PO SCH (21:01)
[2025-01-13] MEDS: RAMELTEON 8 MG TAB (ROZEREM) PO SCH (21:01)
[2025-01-13] MEDS: ATORVASTATIN 20 MG TAB PO SCH (21:01)
[2025-01-13 21:18] LABS: CALCIUM LEVEL 8.2 MG/DL (8.3-10.6); CREATININE FOR GFR 1.23 MG/DL (0.70-1.30); GLOMERULAR FILTRATION RATE 64.4 (>49); POTASSIUM SERUM 4.5 MMOL/L (3.5-5.1)
[2025-01-14 03:11] VITALS: BP 100/58; TEMP 97.9; O2SAT 96
[2025-01-14 06:02] LABS: BASO # 0.1 10^3/uL (0.0-0.2); BASO % 0.5 % (0.0-1.0); EOS # 0.1 10^3/uL (0.0-0.5); EOS % 1.1 % (0.0-3.0); HEMATOCRIT 38.2 % (42.0-52.0); HEMOGLOBIN 12.9 g/dl (13.5-17.5); LYMPH # 1.4 10^3/uL (1.5-5.0); LYMPH % 12.3 % (24.0-44.0); MEAN CORPUSCULAR HEMOGLOBIN 30.9 pg (27.0-33.0); MEAN CORPUSCULAR HGB CONC 33.8 g/dl (32.0-36.5); MEAN CORPUSCULAR VOLUME 91.4 fl (80.0-96.0); MONO # 0.9 10^3/uL (0.0-0.8); MONO % 7.9 % (2.0-8.0); NEUTROPHILS # 8.6 10^3/uL (1.5-8.5); NEUTROPHILS % 77.2 % (36.0-66.0); PLATELET COUNT, AUTOMATED 235 10^3/uL (150-450); RED BLOOD COUNT 4.18 10^6/uL (4.30-6.10); WHITE BLOOD COUNT 11.1 10^3/uL (4.0-10.0)
[2025-01-14 06:26] LABS: CALCIUM LEVEL 8.1 MG/DL (8.3-10.6); CREATININE FOR GFR 1.15 MG/DL (0.70-1.30); GLOMERULAR FILTRATION RATE 69.8 (>49); MAGNESIUM LEVEL 1.7 MG/DL (1.8-2.4); POTASSIUM SERUM 4.8 MMOL/L (3.5-5.1)
[2025-01-14 08:08] VITALS: BP 100/60; TEMP 98; O2SAT 97
[2025-01-14 09:00] VITALS: BP_SYST 100
[2025-01-14 12:10] VITALS: BP 110/57; TEMP 97.1; O2SAT 97
[2025-01-14] MEDS: MAGNESIUM OXIDE 400MG TAB (MAG-OX) PO ONE (14:19)
[2025-01-14 16:00] VITALS: BP 104/59; TEMP 98.2; O2SAT 96
[2025-01-14] MEDS ORDERED: DIFI200T PO (17:48)
== END 2025-01-14 19:30 | disposition home or self-care (01) | DRG 372 ==
LOC: EDBD 12:07 → M ED 12:07 → M ED INP 16:14 → M PCU 21:38
PROVIDERS: ADMIT Internal Medicine; ATTEND Internal Medicine
DX: A04.72 Enterocolitis due to Clostridium difficile, not specified as recurrent (principal); N17.9 Acute kidney failure, unspecified; E87.20 Acidosis, unspecified; M48.56XA Collapsed vertebra, not elsewhere classified, lumbar region, initial encounter for fracture; R65.10 Systemic inflammatory response syndrome (SIRS) of non-infectious origin without acute organ dysfunction; E11.9 Type 2 diabetes mellitus without complications; I10 Essential (primary) hypertension; Z87.891 Personal history of nicotine dependence; E87.5 Hyperkalemia; E86.0 Dehydration; Z86.73 Personal history of transient ischemic attack (TIA), and cerebral infarction without residual deficits; Z79.82 Long term (current) use of aspirin; Z79.899 Other long term (current) drug therapy; Z79.84 Long term (current) use of oral hypoglycemic drugs

== ENCOUNTER → 2025-01-22 | Outpatient (CLI) | payer MEDICARE ==
[~2025-01-22] MED LIST changes: +ACET-839 PO; +ALBU2.5V10 NEB; +ALBU8.5H INH; +AMLO1TAB25 PO; +ATOR40TA75 PO; +CARV6.25 PO; +CHOL50002 PO; +DIFI200T PO; +LACO100T PO; +LISI20TA33 PO; +MELA3TAB70 PO; +METF-838 PO; +SPIR1CAP INH; +SYMB16INH INH
[2025-01-22 13:53] LABS: HEMATOCRIT 39.4 % (42.0-52.0); HEMOGLOBIN 12.5 g/dl (13.5-17.5); MEAN CORPUSCULAR HEMOGLOBIN 31.3 pg (27.0-33.0); MEAN CORPUSCULAR HGB CONC 31.7 g/dl (32.0-36.5); MEAN CORPUSCULAR VOLUME 98.7 fl (80.0-96.0); PLATELET COUNT, AUTOMATED 250 10^3/uL (150-450); RED BLOOD COUNT 3.99 10^6/uL (4.30-6.10); WHITE BLOOD COUNT 7.8 10^3/uL (4.0-10.0)
[2025-01-22 14:18] LABS: PSA SCREENING 0.36 NG/ML (< 4.00)
== END ==
LOC: M PLALAB 11:37
PROVIDERS: ATTEND Physician Assistant
DX: E29.1 Testicular hypofunction (principal); Z12.5 Encounter for screening for malignant neoplasm of prostate
CPT/HCPCS: 36415; 84403; 85027; G0103

== ENCOUNTER → 2025-04-23 | Outpatient (CLI) | payer MEDICARE, MEDICAID ==
[2025-04-23 15:48] LABS: FREE T4 1.06 NG/DL (0.89-1.76); TOTAL T3 131.2 NG/DL (60.0-181.0)
== END ==
LOC: M PLALAB 13:50
PROVIDERS: ATTEND Nurse Practitioner Family
DX: E05.00 Thyrotoxicosis with diffuse goiter without thyrotoxic crisis or storm (principal)

== ENCOUNTER → 2025-04-28 | Outpatient (CLI) | payer MEDICARE, MEDICAID ==
[~2025-04-28] MED LIST changes: +ISOVUE-370 76% 100 ML VIAL As Ordered ONE
== END ==
LOC: M RAD 12:55
PROVIDERS: ATTEND Physician Assistant
DX: N28.89 Other specified disorders of kidney and ureter (principal); N28.1 Cyst of kidney, acquired
CPT/HCPCS: 74170; 82565; Q9967

== ENCOUNTER → 2025-08-17 | Day surgery (SDC) | payer MEDICARE, MEDICAID ==
[~2025-08-17] VITALS: Ht 182.9 cm; Wt 93.3 kg
[~2025-08-17] MED LIST changes: -ISOVUE-370 76% 100 ML VIAL As Ordered ONE; -LACO100T PO; +LACO100T11 PO; +PROA1AER2 INH; +VITA100T86 PO
[2025-08-17 11:13] VITALS: BP 149/77; TEMP 96.9; O2SAT 99
== END | disposition home or self-care (01) ==
LOC: M OPP 10:54
PROVIDERS: ATTEND Surgery
DX: Z53.09 Procedure and treatment not carried out because of other contraindication (principal)